=== PATIENT | female | born 1955 | race Hispanic/Latino ===

== ENCOUNTER → 2017-06-12 | Outpatient (CLI) | payer MEDICAID ==
[~2017-06-12] MED LIST: AMLO5TAB2 PO; ASPI-555 PO; ATOR40TA71 PO; BACL10TA PO; DEXL60CA3 PO; HYDR25TA PO; LEVO150T11 PO; LEVO500T2 PO; LISI-613 PO; METR500T PO; OMEP40CA37 PO
== END | disposition home or self-care (01) ==
LOC: RAH 10:53
PROVIDERS: ATTEND Internal Medicine
DX: E04.1 Nontoxic single thyroid nodule (principal)
CPT/HCPCS: 76536

== ENCOUNTER 2017-08-12 08:59 | Inpatient (IN) | payer MEDICAID ==
[~2017-08-12] VITALS: Ht 172.7 cm; Wt 101.2 kg
[~2017-08-12 08:59] MED LIST changes: -LEVO500T2 PO; -METR500T PO
[2017-08-12 09:29] LABS: BASOPHILS % (AUTO) 0.1 % (0.0-5.0); HEMATOCRIT 40.2 % (36-48); LYMPHOCYTES % (AUTO) 7.4 % (21.0-51.0); MEAN CORPUSCULAR HEMOGLOBIN 28.1 pg (27.0-33.0); MEAN CORPUSCULAR HGB CONC 33.5 g/dL (32.0-36.0); MEAN CORPUSCULAR VOLUME 83.9 fL (79-99); MONOCYTES % (AUTO) 9.8 % (3.0-13.0); NEUTROPHILS % (AUTO) 82.7 % (40.0-77.0); PLATELET COUNT (AUTO) 178 K/uL (130-400); RED BLOOD CELL COUNT(AUTO) 4.79 MIL/uL (4.00-5.50); WHITE BLOOD COUNT (AUTO) 16.3 K/uL (4.8-10.8)
[2017-08-12] MEDS ORDERED: SODIUM CHLORIDE 0.9% 1000ML 3,000 ML IV ONE (09:36)
[2017-08-12] MEDS ORDERED: ACETAMINOPHEN EXTRA STRENGTH 500 MG TABLET ONE (09:36)
[2017-08-12 09:38] LABS: CREATININE 0.9 mg/dL (0.5-1.5); POTASSIUM 3.7 mmol/L (3.5-5.1)
[2017-08-12 09:42] LABS: ALBUMIN 3.3 g/dL (3.5-5.0); BILIRUBIN,TOTAL 0.7 mg/dL (0.2-1.0); TOTAL PROTEIN, SERUM 7.5 g/dL (6.0-8.3)
[2017-08-12 10:29] LABS: APPEARANCE,URINE Cloudy (CLEAR); BILIRUBIN,URINE Negative (NEGATIVE); COLOR,URINE Dark Yellow (YELLOW); GLUCOSE, URINE (UA) Negative (NEGATIVE); KETONES,URINE Negative (NEGATIVE); LEUKOCYTE ESTERASE ,URINE Small (NEGATIVE); NITRATE,URINE Negative (NEGATIVE); OCCULT BLOOD,URINE Moderate (NEGATIVE); PH,URINE 5.5 (5.0-8.0); PROTEIN,URINE POS 1+ (NEGATIVE)
[2017-08-12 10:39] LABS: BACTERIA,URINE Few /HPF (None Seen); WBC,URINE 0-1 /HPF (0-1)
[2017-08-12 10:48] LABS: RAPID GROUP A STREP NEGATIVE (NEGATIVE)
[2017-08-12] MEDS ORDERED: ACETAMINOPHEN 325 MG TAB PO PRN (14:45)
[2017-08-12] MEDS ORDERED: CLONIDINE HCL 0.1 MG TABLET PO PRN (14:45)
[2017-08-12] MEDS ORDERED: ONDANSETRON 4 MG TABLET PO PRN (14:45)
[2017-08-12] MEDS ORDERED: METRONIDAZOLE 500MG/100ML BAG 100 ML ONE (16:34)
[2017-08-12 17:20] VITALS: BP 122/60
[2017-08-12 20:00] VITALS: BP 118/50
[2017-08-12] MEDS: SODIUM CHLORIDE 0.9% 1000ML 1,000 ML IV SCH (21:53)
[2017-08-12] MEDS: LEVOFLOXACIN 500 MG/D5W 100 ML 100 ML IV SCH (21:54)
[2017-08-12] MEDS: OSELTAMIVIR PHOSPHATE 75 MG CAP PO SCH (21:54)
[2017-08-12] MEDS: METRONIDAZOLE 500MG/100ML BAG 100 ML IV SCH (23:36)
[2017-08-13] VITALS: BP 128/68
[2017-08-13] MEDS: SODIUM CHLORIDE 0.9% 1000ML 1,000 ML IV SCH ×2 (00:45→11:17)
[2017-08-13 04:00] VITALS: BP 142/62
[2017-08-13 04:01] LABS: HEMATOCRIT 33.2 % (36-48); MEAN CORPUSCULAR HEMOGLOBIN 28.4 pg (27.0-33.0); MEAN CORPUSCULAR HGB CONC 33.7 g/dL (32.0-36.0); MEAN CORPUSCULAR VOLUME 84.3 fL (79-99); PLATELET COUNT (AUTO) 160 K/uL (130-400); RED BLOOD CELL COUNT(AUTO) 3.94 MIL/uL (4.00-5.50); WHITE BLOOD COUNT (AUTO) 10.6 K/uL (4.8-10.8)
[2017-08-13 04:16] LABS: CREATININE 0.7 mg/dL (0.5-1.5); POTASSIUM 3.1 mmol/L (3.5-5.1)
[2017-08-13] MEDS: LEVOTHYROXINE 150 MCG TABLET PO SCH (06:52)
[2017-08-13 08:00] VITALS: BP 132/71
[2017-08-13] MEDS: METRONIDAZOLE 500MG/100ML BAG 100 ML IV SCH ×3 (08:58→22:28)
[2017-08-13] MEDS: LISINOPRIL 20 MG TABLET PO SCH (08:58)
[2017-08-13] MEDS: AMLODIPINE BESYLATE 5 MG TAB PO SCH (08:58)
[2017-08-13] MEDS: ASPIRIN 81 MG EC TAB PO SCH (08:58)
[2017-08-13] MEDS: OSELTAMIVIR PHOSPHATE 75 MG CAP PO SCH ×2 (08:58→22:28)
[2017-08-13] MEDS ORDERED: ATORVASTATIN CALCIUM 40 MG TABLET PO SCH ×2 (09:00→11:22)
[2017-08-13] MEDS: LOPERAMIDE HCL 2 MG CAP PO PRN ×2 (11:31→17:50)
[2017-08-13 11:43] VITALS: BP 120/65
[2017-08-13 16:00] VITALS: BP 115/59
[2017-08-13] MEDS: LEVOFLOXACIN 500 MG/D5W 100 ML 100 ML IV SCH (17:49)
[2017-08-13 20:00] VITALS: BP 124/62
[2017-08-13] MEDS ORDERED: POTASSIUM CHLORIDE 20MEQ/100ML 100 ML IV PRN (20:30)
[2017-08-13] MEDS ORDERED: LIDOCAINE HCL-MPF 1% 2ML VIAL IVP PRN (20:30)
[2017-08-13] MEDS ORDERED: POTASSIUM CHLORIDE 10% ELIXIR 20 MEQ/15 ML UDCUP PO PRN (20:30)
[2017-08-13] MEDS: POTASSIUM CHLORIDE 20 MEQ ERTAB PO PRN (22:28)
[2017-08-13] MEDS: ATORVASTATIN CALCIUM 40 MG TABLET PO SCH (22:29)
[2017-08-14] VITALS (7 sets, daily range): BP systolic 122–149; BP diastolic 56–84
[2017-08-14] MEDS: SODIUM CHLORIDE 0.9% 1000ML 1,000 ML IV SCH ×3 (01:00→16:50)
[2017-08-14] MEDS: POTASSIUM CHLORIDE 20 MEQ ERTAB PO PRN ×5 (01:00→18:26)
[2017-08-14 04:13] LABS: CREATININE 0.6 mg/dL (0.5-1.5); POTASSIUM 3.3 mmol/L (3.5-5.1)
[2017-08-14] MEDS: LEVOTHYROXINE 150 MCG TABLET PO SCH (07:39)
[2017-08-14] MEDS: METRONIDAZOLE 500MG/100ML BAG 100 ML IV SCH ×3 (10:10→21:18)
[2017-08-14] MEDS: LISINOPRIL 20 MG TABLET PO SCH (10:10)
[2017-08-14] MEDS: AMLODIPINE BESYLATE 5 MG TAB PO SCH (10:10)
[2017-08-14] MEDS: OSELTAMIVIR PHOSPHATE 75 MG CAP PO SCH ×2 (10:11→21:18)
[2017-08-14] MEDS: ASPIRIN 81 MG EC TAB PO SCH (10:11)
[2017-08-14] MEDS: LEVOFLOXACIN 500 MG/D5W 100 ML 100 ML IV SCH (18:25)
[2017-08-14] MEDS: ATORVASTATIN CALCIUM 40 MG TABLET PO SCH (21:18)
[2017-08-15] MEDS: SODIUM CHLORIDE 0.9% 1000ML 1,000 ML IV SCH ×2 (00:20→12:45)
[2017-08-15 03:00] VITALS: BP 120/65
[2017-08-15 04:05] LABS: HEMATOCRIT 33.8 % (36-48); MEAN CORPUSCULAR HEMOGLOBIN 27.6 pg (27.0-33.0); MEAN CORPUSCULAR HGB CONC 32.9 g/dL (32.0-36.0); MEAN CORPUSCULAR VOLUME 83.9 fL (79-99); PLATELET COUNT (AUTO) 176 K/uL (130-400); RED BLOOD CELL COUNT(AUTO) 4.03 MIL/uL (4.00-5.50); RED CELL DISTRIBUTION WIDTH 14.9 % (11.0-15.5)
[2017-08-15 04:27] LABS: CREATININE 0.7 mg/dL (0.5-1.5); POTASSIUM 3.9 mmol/L (3.5-5.1)
[2017-08-15] MEDS: LEVOTHYROXINE 150 MCG TABLET PO SCH (06:27)
[2017-08-15 08:00] VITALS: BP 157/77
[2017-08-15] MEDS: OSELTAMIVIR PHOSPHATE 75 MG CAP PO SCH ×2 (09:00→09:15)
[2017-08-15] MEDS: METRONIDAZOLE 500MG/100ML BAG 100 ML IV SCH (09:14)
[2017-08-15] MEDS: ASPIRIN 81 MG EC TAB PO SCH (09:15)
[2017-08-15] MEDS: LISINOPRIL 20 MG TABLET PO SCH (09:15)
[2017-08-15] MEDS: AMLODIPINE BESYLATE 5 MG TAB PO SCH (09:15)
[2017-08-15] MEDS ORDERED: LIDOCAINE HCL 2% VISCOUS 15 ML UDCUP PO PRN (10:00)
[2017-08-15 12:00] VITALS: BP 121/65
[2017-08-15] MEDS: METRONIDAZOLE 500 MG TABLET PO SCH ×2 (13:37→21:22)
[2017-08-15 16:00] VITALS: BP 126/70
[2017-08-15 19:00] VITALS: BP 120/60
[2017-08-15] MEDS: ATORVASTATIN CALCIUM 40 MG TABLET PO SCH (21:22)
[2017-08-15 23:00] VITALS: BP 115/70
[2017-08-16 03:00] VITALS: BP 116/60
[2017-08-16] MEDS: SODIUM CHLORIDE 0.9% 1000ML 1,000 ML IV SCH ×2 (03:30→08:56)
[2017-08-16] MEDS: LEVOTHYROXINE 150 MCG TABLET PO SCH (05:23)
[2017-08-16 07:08] LABS: CREATININE 0.7 mg/dL (0.5-1.5); POTASSIUM 3.6 mmol/L (3.5-5.1)
[2017-08-16 07:58] VITALS: BP 131/66
[2017-08-16] MEDS: ASPIRIN 81 MG EC TAB PO SCH (08:54)
[2017-08-16] MEDS: LISINOPRIL 20 MG TABLET PO SCH (08:54)
[2017-08-16] MEDS: AMLODIPINE BESYLATE 5 MG TAB PO SCH (08:54)
[2017-08-16] MEDS: METRONIDAZOLE 500 MG TABLET PO SCH (08:54)
[2017-08-16] MEDS ORDERED: LEVOFLOXACIN 500 MG TABLET PO SCH (09:00)
[2017-08-16] MEDS ORDERED: PANTOPRAZOLE SODIUM 40 MG TABLET.DR PO SCH (09:00)
[2017-08-16] MEDS ORDERED: METR500T PO (10:00)
[2017-08-16] MEDS ORDERED: LEVO500T2 PO (10:00)
== END 2017-08-16 11:55 | disposition home or self-care (01) | DRG 720 ==
LOC: EDH 08:59 → EDHIP 09:00 → OBSVTOIN 09:00 → 3BH 17:10
PROVIDERS: ADMIT Family Medicine; ATTEND Family Medicine
DX: A41.9 Sepsis, unspecified organism (principal); E03.9 Hypothyroidism, unspecified; E78.5 Hyperlipidemia, unspecified; I10 Essential (primary) hypertension; K52.9 Noninfective gastroenteritis and colitis, unspecified
CPT/HCPCS: 36415; 70450; 71046; 74176; 80048; 80053; 81001; 82270; 83605; 83735; 85025; 85027; 87046; 87177; 87205; 87324; 87507; 87804; 87880; J1956; J3490; J7030

== ENCOUNTER 2018-05-05 17:06 | Emergency (ER) | payer MEDICAID, OTHER ==
[~2018-05-05 17:06] MED LIST changes: -AMLO5TAB2 PO; +AMLO5TAB9 PO; +LEVO500T2 PO; +METR500T PO
[2018-05-05] MEDS ORDERED: BENZONATATE 100 MG CAPSULE PO ONE (18:11)
[2018-05-05] MEDS ORDERED: DEXAMETHASONE SOD PHOSPHATE 10MG/ML 1ML VIAL ONE (18:11)
[2018-05-05] MEDS ORDERED: GUAIFENESIN SUGAR-FREE 100 MG/5 ML UDCUP ONE (18:11)
[2018-05-05] MEDS ORDERED: IPRATROPIUM/ALBUTEROL SULFATE 3 ML SOLUTION IH ONE (18:41)
== END 2018-05-05 20:49 | disposition home or self-care (01) ==
LOC: EDH 17:06
DX: J20.9 Acute bronchitis, unspecified (principal); E78.5 Hyperlipidemia, unspecified; I10 Essential (primary) hypertension; E07.9 Disorder of thyroid, unspecified; Z88.0 Allergy status to penicillin; Z98.51 Tubal ligation status; Z90.49 Acquired absence of other specified parts of digestive tract
CPT/HCPCS: 71046; 87804 ×2; 94640; 96372; 99284; J1100

== ENCOUNTER → 2019-02-04 | Outpatient (CLI) | payer OTHER ==
[~2019-02-04] MED LIST changes: +OMEP40CA13 PO; -OMEP40CA37 PO
== END | disposition home or self-care (01) ==
LOC: RAH 10:40
PROVIDERS: ATTEND Internal Medicine
DX: M51.35 Other intervertebral disc degeneration, thoracolumbar region (principal); Z90.49 Acquired absence of other specified parts of digestive tract
CPT/HCPCS: 74018

== ENCOUNTER → 2021-08-22 | Outpatient (CLI) | payer MEDICARE ==
[~2021-08-22] MED LIST changes: +AMLO-257 PO; -AMLO5TAB9 PO; -ASPI-555 PO; +ASPI-556 PO; -LISI-613 PO; +LISI20TA24 PO; -OMEP40CA13 PO; +OMEP40CA21 PO
[2021-08-22 08:39] LABS: CREATININE 0.8 mg/dL (0.5-1.5); POTASSIUM 4.5 mmol/L (3.5-5.1)
== END | disposition home or self-care (01) ==
LOC: LAB 08:02
PROVIDERS: ATTEND Internal Medicine Cardiovascular Disease
DX: I25.119 Atherosclerotic heart disease of native coronary artery with unspecified angina pectoris (principal); R07.9 Chest pain, unspecified
CPT/HCPCS: 36415; 80048

== ENCOUNTER → 2021-08-28 | Outpatient (CLI) | payer MEDICARE ==
[~2021-08-28] MED LIST changes: +IOHEXOL 350 MG/ML 100ML INFUS..BTL IV ONE; +METOPROLOL TARTRATE 1 MG/ML 5ML VIAL IV ONE
== END | disposition home or self-care (01) ==
LOC: RAH 07:34
PROVIDERS: ATTEND Internal Medicine Cardiovascular Disease
DX: I25.119 Atherosclerotic heart disease of native coronary artery with unspecified angina pectoris (principal); R07.9 Chest pain, unspecified
CPT/HCPCS: 75574; J3490; Q9967

== ENCOUNTER → 2024-03-09 | Outpatient (CLI) | payer OTHER ==
[~2024-03-09] MED LIST changes: -IOHEXOL 350 MG/ML 100ML INFUS..BTL IV ONE; -METOPROLOL TARTRATE 1 MG/ML 5ML VIAL IV ONE
== END | disposition home or self-care (01) ==
LOC: LAB 11:16
PROVIDERS: ATTEND Physician Assistant
DX: I10 Essential (primary) hypertension (principal)
CPT/HCPCS: 36415; 85378

== ENCOUNTER → 2024-05-23 | Outpatient (CLI) | payer OTHER | END | disposition home or self-care (01) | LOC: SHCH 11:06 | PROVIDERS: ATTEND Internal Medicine Cardiovascular Disease | DX: I10 Essential (primary) hypertension (principal) | CPT/HCPCS: 93306 ==

== ENCOUNTER → 2024-05-28 | Outpatient (CLI) | payer OTHER | END | disposition home or self-care (01) | LOC: SHCH 11:03 | PROVIDERS: ATTEND Internal Medicine Cardiovascular Disease | DX: I87.2 Venous insufficiency (chronic) (peripheral) (principal) | CPT/HCPCS: 93970 ==

== ENCOUNTER → 2024-06-27 | Outpatient (CLI) | payer OTHER ==
[~2024-06-27] MED LIST changes: +IOHEXOL 350 MG/ML 100ML INFUS..BTL IV ONE
--- NOTE | 2024-06-27 10:30 | HMCIMG ---
CT CARDIAC ANGIO W/CONT. CCTA HISTORY: Hypertension COMPARISON: None TECHNIQUE: Multiple sequential axial images of the chest were obtained along with the CT angiogram of the chest study. Patient was given 100 cc of Omnipaque through intravenous route. FINDINGS: There is no evidence of pulmonary nodule or parenchymal disease. No pleural effusion or pericardial effusion is seen. There is no evidence of pneumothorax. There are normal size mediastinal and hilar lymph nodes. The heart is not enlarged. Degenerative changes of the thoracolumbar spine are present. IMPRESSION: 1. No evidence of pulmonary nodule or effusion is seen. Please see CT angiogram report of coronary arteries.
--- NOTE | 2024-06-29 18:59 | CARDIOLOGY ---
RAD REPORT: CORNARY CT ANGIO RADIOLOGY REPORT: CORONARY CT ANGIOGRAPHY DATE: Jun 29, 2024 QUALITY: Excellent CLINICAL HISTORY AND INDICATION: [ NETTLES ] TECHNIQUE: After obtaining a preliminary mortgage loan originator image, contrast imaging performed on an [id number] [id number] scanner. A dedicated, limited window, coronary imaging protocol was used, with single breath-hold, retrospective ECG gating, and automated arrhythmia rejection. 100 cc of low osmolar contrast agent: Omnipaque 350 was delivered via a 18-gauge IV catheter in the right antecubital fossa, using a power injector and followed by 60 cc of normal saline bolus as a chaser. Collimated images were reformatted at 0.5 mm intervals, and sent to an offline independent workstation for interpretation, using 3D anatomic reconstructions: Curved multiplanar reconstructions, maximum intensity projections, and multiplanar imaging. No metoprolol was administered prior to scanning due to low baseline heart rate. 0.4 mg SL nitroglycerin was given. CORONARY ARTERY DESCRIPTIONS: The coronary arteries arise in normal position. Left main coronary artery: Normal caliber vessel that bifurcates into the LAD and LCx. There is mixed calcified and noncalcified plaque in the ostial left main with 20% stenosis. Left anterior descending coronary artery: Normal caliber vessel and gives rise to diagonal and septal branches. No stenosis. Left circumflex coronary artery: Normal caliber, nondominant and gives rise to a large OM branch. No stenosis. Right coronary artery: Large, dominant vessel giving rise to the PL and PDA branches. No stenosis. CAD-RADs: 2, mild non-obstructive CAD. Thoracic Aorta: Normal diameter. Shahida Irizarry MD Cardiovascular Disease [facility] SHAHIDA IRIZARRY MD Jun 29, 2024 18:59
== END | disposition home or self-care (01) ==
LOC: RAH 08:59
PROVIDERS: ATTEND Internal Medicine Cardiovascular Disease
DX: I10 Essential (primary) hypertension (principal); I87.1 Compression of vein; M47.815 Spondylosis without myelopathy or radiculopathy, thoracolumbar region
CPT/HCPCS: 75574; Q9967